=== PATIENT | female | born 1935 | race Two or more races ===

== ENCOUNTER 2024-07-25 15:51 | Emergency (ER) | payer OTHER ==
[~2024-07-25] VITALS: Ht 160 cm; Wt 52.2 kg
[~2024-07-25 15:51] MED LIST: ALTACE10 MG PO; LEVOXYL25 MCG PO; MEDROL4 MG PO; NAMENDA10 MG PO; PROTONIX20 MG PO; RAZADYNE ER8 MG PO; REGLAN5 MG/5 ML PO; SYNTHROID150 MCG PO
[2024-07-25] MEDS ORDERED: LIPITOR40 M1 PO (16:15)
[2024-07-25] MEDS ORDERED: COZAAR25 MG PO (16:15)
[2024-07-25] MEDS ORDERED: PLAVIX75 MG (16:15)
[2024-07-25] MEDS ORDERED: TRAZODONE HCL50 MG PO (16:16)
[2024-07-25] MEDS ORDERED: SEROQUEL50 MG (16:16)
== END 2024-07-25 18:06 | disposition left against medical advice (07) ==
LOC: ER 15:52
DX: Z53.21 Procedure and treatment not carried out due to patient leaving prior to being seen by health care provider (principal)